=== PATIENT | female | born 1990 | race Caucasian/White ===

== ENCOUNTER → 2021-07-09 | Day surgery (SDC) | payer OTHER ==
[~2021-07-09] MED LIST: AMITRIPTYLINE H25 MG PO; BUPRENORPHIN-N1 EACH SL; CETIRIZINE HCL10 MG PO; LEVOTHYROXINE75 MCG PO; MIRENA1 EACH IY
== END | disposition home or self-care (01) ==
LOC: OR 07:24
DX: K76.6 Portal hypertension (principal); K31.89 Other diseases of stomach and duodenum; K74.60 Unspecified cirrhosis of liver; E61.1 Iron deficiency; E03.9 Hypothyroidism, unspecified; F17.200 Nicotine dependence, unspecified, uncomplicated; E66.9 Obesity, unspecified; Z68.39 Body mass index [BMI] 39.0-39.9, adult; Z88.2 Allergy status to sulfonamides; Z79.899 Other long term (current) drug therapy; Z20.822 Contact with and (suspected) exposure to COVID-19
CPT/HCPCS: 82390; 84703; J2001; J2250; J2704; J3010; J7040

== ENCOUNTER → 2021-11-11 | Outpatient (CLI) | payer OTHER ==
[2021-11-12 14:14] LABS: LIVER-KIDNEY MICROSOMAL AB 1.1 Units (0.0-20.0)
== END ==
LOC: LAB 11:50
PROVIDERS: Internal Medicine Gastroenterology
DX: K74.60 Unspecified cirrhosis of liver (principal)
CPT/HCPCS: 36415; 82784; 83516; 86376